=== PATIENT | female | born 1965 | race Caucasian/White ===

== ENCOUNTER → 2017-02-01 | Outpatient (CLI) | payer BC ==
[~2017-02-01] MED LIST: CALCIUM 600600 M2 PO; CHLOR TRIMETON 44 MG PO; CITRACAL ECONO200 MG PO; CLARITIN 1010 MG/TAB PO; CLARITIN10 MG PO; DICLOFENAC SOD100 M1 PO; DIFLUCAN200 MG PO; DOXYCYCLINE 10100 MG PO; EXCEDRIN TENSIO1 CAP PO; FLEXERIL 1010 MG/TAB PO; GINGKO-GO120 MG PO; GLUCOSAMINE & C1 CA2 PO; GLUCOSAMINE & C1 CAP PO; GLUCOSAMINE CHO1 CAP PO; L-LYSINE500 M1 PO; LEVAQUIN 750MG750 M1 PO; LEXAPRO10 MG PO; LIPITOR 40MG TA40 MG PO; LIPITOR40 MG PO; LUTEIN20 MG PO; LYSINE PO; MELATONIN3 MG PO; MUCINEX 60600 MG/TA1 PO; MUCINEX D 12001 TER PO; MULTIPLE VITAMI1 CAP PO; NEXIUM 40MG40 MG PO; PRILOSEC 20MG20 MG PO; PRISTIQ100 MG PO; ROBITUSSIN A-C S1 M1 PO; SINGULAIR10 MG PO; STRESS B COMPLE1 TAB PO; SUDAFED 12 HOU120 MG PO; SUDAFED 12HR120 MG PO; TUSS PO; TYLENOL 325MG325 MG PO; ULTRAM 50MG TAB50 MG PO; VITAMIN B COMPL1 SGL PO; VITAMIN B COMPL1 T16 PO; VITAMIN C500 MG PO; VOLTAREN-XR100 MG PO; VTAMINC250TA PO; YAZ 28 3 MG-0.01 TAB PO; ZETIA 10MG TAB10 MG PO; [UNRECOGNIZED DRUG - OTHER] PO; [UNRECOGNIZED DRUG - OTHER] PO
== END ==
LOC: MC.RAD 12:31
DX: N63.11 Unspecified lump in the right breast, upper outer quadrant (principal)

== ENCOUNTER → 2017-02-06 | Outpatient (CLI) | payer BC ==
[~2017-02-06] MED LIST changes: +ANTIVERT 25MG25 MG PO; +NORCO 325 MG-7.1 TAB PO
== END ==
LOC: MC.RAD 10:12
DX: N64.89 Other specified disorders of breast (principal); N64.1 Fat necrosis of breast

== ENCOUNTER 2017-03-23 12:03 | Inpatient (IN) | payer BC ==
[~2017-03-23] VITALS: Ht 165.1 cm; Wt 91.0 kg
[~2017-03-23 12:03] MED LIST changes: -ANTIVERT 25MG25 MG PO; -NORCO 325 MG-7.1 TAB PO
[2017-03-23 13:01] LABS: HEMATOCRIT 38.2 % (37.0-47.0); HEMOGLOBIN 12.5 g/dl (12.5-16.0); MEAN CELL VOLUME 93 fl (80.0-100.0); MEAN CORPUSCULAR HEMOGLOBIN 30 pg (27.0-31.0); MEAN CORPUSCULAR HGB CONC 33 g/dl (33.0-37.0); MEAN PLATELET VOLUME 9.8 fl (7.4-10.4); PLATELET COUNT 285 K/mm3 (130-400); RED BLOOD COUNT 4.13 M/mm3 (4.10-5.30); WHITE BLOOD COUNT 9.4 K/mm3 (4.8-10.8)
[2017-03-23 13:04] LABS: ADD PATHOLOGY DIFF REVIEW NO
[2017-03-23 13:15] LABS: ADJUSTED CALCIUM 9.5 mg/dL (8.4-10.2); ALBUMIN 3.9 gm/dL (3.5-5.0); BILIRUBIN,TOTAL 0.5 mg/dL (0.0-1.0); CALCIUM 9.4 mg/dL (8.4-10.2); CREATININE, serum 0.66 mg/dL (0.52-1.25); POTASSIUM 3.2 mmol/L (3.4-5.0); TOTAL PROTEIN 7.3 gm/dL (6.4-8.2)
[2017-03-23 13:26] LABS: BAND 58 % (0-10); C-REACTIVE PROTEIN 19.2 mg/dL (0.0-0.9); LYMPHOCYTE 28 % (20.0-51.0); NEUTROPHILS 5 % (42.0-75.2); PLATELET ESTIMATE NORMAL (NORMAL); TOTAL CELLS COUNTED 100
[2017-03-23 18:16] VITALS: BP 142/75; PULSE 108; TEMP 98.4
[2017-03-23] MEDS ORDERED: ANTIVERT 25MG25 MG PO (18:32)
[2017-03-23] MEDS ORDERED: NORCO 325 MG-7.1 TAB PO (18:32)
[2017-03-23 20:50] VITALS: BP 148/82; PULSE 109; TEMP 97.3
[2017-03-23 23:57] VITALS: BP 140/68; PULSE 116; TEMP 98.3
[2017-03-24 04:46] VITALS: BP 154/66; PULSE 109; TEMP 98.2
[2017-03-24 06:50] LABS: MEAN CELL VOLUME 92 fl (80.0-100.0); MEAN CORPUSCULAR HGB CONC 32 g/dl (33.0-37.0); MEAN PLATELET VOLUME 10.2 fl (7.4-10.4); PLATELET COUNT 281 K/mm3 (130-400); RED BLOOD COUNT 3.55 M/mm3 (4.10-5.30); WHITE BLOOD COUNT 7.7 K/mm3 (4.8-10.8)
[2017-03-24 06:58] LABS: HEMOGLOBIN 10.6 g/dl (12.5-16.0); MEAN CORPUSCULAR HEMOGLOBIN 30 pg (27.0-31.0)
[2017-03-24 06:59] LABS: ADD PATHOLOGY DIFF REVIEW NO; HEMATOCRIT 32.8 % (37.0-47.0)
[2017-03-24 07:02] LABS: CALCIUM 8.4 mg/dL (8.4-10.2); CREATININE, serum 0.53 mg/dL (0.52-1.25); POTASSIUM 3.2 mmol/L (3.4-5.0)
[2017-03-24 07:50] VITALS: BP 155/80; PULSE 116; TEMP 98.7
[2017-03-24 10:53] LABS: BAND 64 % (0-10); EOSINOPHIL 1 % (0-4); LYMPHOCYTE 26 % (20.0-51.0); NEUTROPHILS 8 % (42.0-75.2); PLATELET ESTIMATE NORMAL (NORMAL); TOTAL CELLS COUNTED 100
[2017-03-24 12:06] VITALS: BP 150/82; PULSE 105; TEMP 98.3
== END 2017-03-24 16:34 | disposition home or self-care (01) | DRG 392 ==
LOC: COL.ER 12:03 → MEDICAL 17:03
PROVIDERS: Emergency Medicine; Family Medicine
DX: R19.7 Diarrhea, unspecified (principal); E11.9 Type 2 diabetes mellitus without complications; Z96.652 Presence of left artificial knee joint
CPT/HCPCS: 99232-AI; J1956; J7030

== ENCOUNTER → 2017-04-20 | Outpatient (CLI) | payer BC ==
[~2017-04-20] MED LIST changes: +ANTIVERT 25MG25 MG PO; +NORCO 325 MG-7.1 TAB PO
== END ==
LOC: COL.RAD 04-19 12:30
DX: M47.817 Spondylosis without myelopathy or radiculopathy, lumbosacral region (principal); M46.1 Sacroiliitis, not elsewhere classified

== ENCOUNTER → 2017-09-06 | Outpatient (CLI) | payer BC | LOC: MC.RAD 12:01 | DX: N64.89 Other specified disorders of breast (principal); M17.0 Bilateral primary osteoarthritis of knee ==

== ENCOUNTER → 2018-03-12 | Outpatient (CLI) | payer BC | LOC: MC.RAD 13:05 | DX: R92.8 Other abnormal and inconclusive findings on diagnostic imaging of breast (principal) | CPT/HCPCS: G0279 ==

== ENCOUNTER → 2019-01-24 | Outpatient (CLI) | payer BC | LOC: MC.RAD 12:20 | DX: Z12.31 Encounter for screening mammogram for malignant neoplasm of breast (principal) ==

== ENCOUNTER → 2020-01-23 | Outpatient (CLI) | payer BC | LOC: MC.RAD 13:57 | DX: Z12.31 Encounter for screening mammogram for malignant neoplasm of breast (principal); Z98.890 Other specified postprocedural states ==

== ENCOUNTER 2020-09-05 14:14 | Emergency (ER) | payer BC ==
[~2020-09-05] VITALS: Ht 165.1 cm; Wt 77.7 kg
[2020-09-05 15:36] LABS: BASO # 0.1 (0.0-0.2); BASO % 0.3 % (0.0-2.0); EOS # 0.4 (0.0-0.7); EOS % 2.1 % (0-4.0); GRAN # 11.9 (1.4-6.5); GRAN % 67.1 % (42.2-75.2); HEMATOCRIT 38.2 % (37.0-47.0); HEMOGLOBIN 12.1 g/dl (12.5-16.0); LYMPH # 4.2 (1.2-3.4); LYMPH % 23.7 % (20.0-51.0); MEAN CELL VOLUME 89 fl (80.0-100.0); MEAN CORPUSCULAR HEMOGLOBIN 28 pg (27.0-31.0); MEAN CORPUSCULAR HGB CONC 32 g/dl (33.0-37.0); MEAN PLATELET VOLUME 9.2 fl (7.4-10.4); MONO # 1.2 (0.1-0.6); MONO % 6.5 % (1.7-9.3); PLATELET COUNT 423 K/mm3 (130-400); RED BLOOD COUNT 4.28 M/mm3 (4.10-5.30); REDCELL DISTRIBUTION WIDTH-CV 14.5 % (11.5-14.5)
[2020-09-05 15:43] LABS: ALANINE AMINOTRANSFERASE 52 U/L (4-34); ALBUMIN 3.6 gm/dL (3.5-5.0); ALKALINE PHOSPHATASE 121 U/L (50-136); ANION GAP 5 mmol/L (7-16); AST,SGOT 40 U/L (15-37); BILIRUBIN,TOTAL 0.2 mg/dL (0.0-1.0); BLOOD UREA NITROGEN 28 mg/dL (7-17); CALCIUM 9.3 mg/dL (8.4-10.2); CARBON DIOXIDE 23 mmol/L (22-30); CHLORIDE 105 mmol/L (98-107); CREATININE, serum 0.78 (0.52-1.25); GLUCOSE 99 mg/dL (74-106); POTASSIUM 3.7 mmol/L (3.4-5.0); SODIUM 134 mmol/L (137-145); TOTAL PROTEIN 6.9 gm/dL (6.4-8.2)
[2020-09-05 15:55] LABS: TROPONIN-I < 0.012 ng/mL (0.000-0.035)
[2020-09-05 17:27] LABS: COLLECTION METHOD CLEAN CATCH
[2020-09-05 17:40] LABS: PH 6 (5-8); SQUAMOUS EPITHELIAL 0-2 /hpf; URINE APPEARANCE Clear; URINE BACTERIA Rare /hpf; URINE BILIRUBIN Negative (NEGATIVE); URINE BLOOD Negative (NEGATIVE); URINE COLOR Straw; URINE GLUCOSE Negative (NEGATIVE); URINE KETONE Negative (NEGATIVE); URINE LEUKOCYTE ESTERASE Negative (NEGATIVE); URINE NITRATE Negative (NEGATIVE); URINE PROTEIN(semi-quant) Negative (NEGATIVE); URINE RBC 0-2 /hpf; URINE UROBILINOGEN Negative (NEGATIVE)
[2020-09-05 18:22] VITALS: BP 133/68; PULSE 69
== END 2020-09-05 18:22 | disposition home or self-care (01) ==
LOC: COL.ER 14:14
PROVIDERS: Physician Assistant
DX: R07.2 Precordial pain (principal); B34.9 Viral infection, unspecified; I10 Essential (primary) hypertension; E11.9 Type 2 diabetes mellitus without complications; E78.00 Pure hypercholesterolemia, unspecified; F41.9 Anxiety disorder, unspecified; Z79.899 Other long term (current) drug therapy
CPT/HCPCS: J2405; J7030

== ENCOUNTER → 2021-01-24 | Outpatient (CLI) | payer BC | LOC: MC.RAD 14:28 | DX: Z12.31 Encounter for screening mammogram for malignant neoplasm of breast (principal) ==

== ENCOUNTER → 2022-01-25 | Outpatient (CLI) | payer BC | LOC: MC.RAD 13:22 | DX: Z12.31 Encounter for screening mammogram for malignant neoplasm of breast (principal) ==

== ENCOUNTER → 2024-01-25 | Outpatient (CLI) | payer BC | LOC: MC.RAD 13:36 | DX: Z12.31 Encounter for screening mammogram for malignant neoplasm of breast (principal) ==